=== PATIENT | female | born 1965 | race Caucasian/White ===

== ENCOUNTER 2024-06-04 14:11 | Outpatient (CLI) | payer OTHER, SELFPAY | END 2024-06-04 14:12 | disposition home or self-care (01) | LOC: ANHAUDIO 14:11 | PROVIDERS: PCP Otolaryngology; Visit Provider Otolaryngology | DX: H90.3 Sensorineural hearing loss, bilateral (principal) | CPT/HCPCS: 92557; 92567 ==